=== PATIENT | female | born 1965 | race Two or more races ===

== ENCOUNTER 2016-12-03 21:27 | Emergency (ER) | payer OTHER ==
[~2016-12-03] VITALS: Ht 157.5 cm; Wt 56.7 kg
[2016-12-03 22:03] LABS: Albumin 3.7 g/dL (3.4-5.0); Calcium 9.1 mg/dL (8.5-10.1)
[2016-12-03 22:05] LABS: BUN/Creatinine Ratio 29.2
[2016-12-03 22:07] LABS: Bilirubin, Total 0.4 mg/dL (0.2-1.0); Total Protein 7.4 g/dL (6.4-8.2)
[2016-12-03 22:26] LABS: Basophils # (auto) 0 uL; Basophils % (auto) 0.2 % (0.0-2.0); Eosinophils # (auto) 0 uL; Eosinophils % (auto) 0.1 % (0.0-7.0); Hematocrit 37.4 % (36.0-46.0); Hemoglobin 12.9 g/dL (12.2-16.2); Lymphocytes # (auto) 0.8 uL; Lymphocytes % (auto) 13.9 % (10.0-50.0); Mean Corpuscular Hemoglobin 31.1 pg (28.0-32.0); Mean Corpuscular Hgb Conc. 34.4 g/dL (32.0-36.0); Mean Corpuscular Volume 90.3 fL (80.0-100.0); Monocytes # (auto) 0.2 uL; Neutrophils # (auto) 4.8 uL; Neutrophils % (auto) 82.8 % (37.0-80.0); Nucleated Red Blood Cells % 0.1 %; Platelet Count (auto) 123 10^3/uL (140-450); Red Cell Distribution Width 13.4 % (11.8-14.3); White Blood Cell 5.8 10^3/uL (4.4-10.8)
[2016-12-04 01:44] LABS: Urine Bilirubin Negative (Negative); Urine Blood TRACE /uL (Negative); Urine Color Yellow (Yellow); Urine Glucose Normal (Normal); Urine Ketone 3+ (Negative); Urine Mucus FEW (None Seen); Urine Nitrite Negative (Negative); Urine RBC 1 /hpf (0 - 4); Urine Squamous Epithelial Cell FEW /hpf (<5); Urine Urobilinogen Normal (Negative)
[2016-12-04] MEDS ORDERED: metroNIDAZOLE 500 MG TAB PO ONE (02:45)
[2016-12-04] MEDS ORDERED: SODIUM CHLORIDE 0.9% 1,000 ML IV ONE (02:45)
[2016-12-04] MEDS ORDERED: cefTRIAXone 1GM/50ML D5W 50 ML IV ONE (02:45)
[2016-12-04 05:15] VITALS: BP 98/72
== END 2016-12-04 05:21 | disposition home or self-care (01) ==
LOC: EDBD 21:27 → ER 21:29
DX: K52.9 Noninfective gastroenteritis and colitis, unspecified (principal)
CPT/HCPCS: 36415; 74176; 80053; 81001; 83690; 84702; 85025; 96361; 96365; 99285; J0696